=== PATIENT | female | born 1980 | race Two or more races ===

== ENCOUNTER 2024-05-04 07:25 | Emergency (ER) | payer MEDICAID, SELFPAY ==
[2024-05-04 07:25] VITALS: BMI 30.9
[2024-05-04 07:31] VITALS: BP 121/86; PULSE 131; RESP 18; TEMP 38.8; O2SAT 95; BMI 30.9
--- NOTE | 2024-05-04 07:45 | EDNOTE_ITS ---
Upper Respiratory Inf. RME/HPI General Chief Complaint: Flu Like Symptoms Stated Complaint: HAS THE FLU Time Seen by Provider: 05/04/24 07:43 Arrival date/time: 05/04/24 07:25 43-year-old female with multiple sick contacts at home which is a positive for the flu presents to the emergency department today for flulike symptoms for the last couple of days Limitations: no limitations Related Data Previous Rx's ?Medication ?Instructions ?Recorded pantoprazole 40 mg tablet,delayed 40 mg PO QDAY #30 ta bs 08/21/21 release phenazopyridine 100 mg tablet 100 mg PO TID PRN pain 6 doses #6 03/21/22 (Pyridium) tabs amoxicillin 875 mg-potassium 1 tab PO BID 7 days #14 t abs 05/04/24 clavulanate 125 mg tablet ibuprofen 800 mg tablet 800 mg PO TID PRN pain #30 t abs 05/04/24 Allergies Allergy/AdvReac Type Severity Reaction Status Date / Time No Known Allergies Allergy Verified 05/04/24 07:27 Review of Systems Review of Systems Systems Reviewed: All systems reviewed, normal except as documented Constitutional Constitutional: Reports system reviewed and no additional complaints, except as documented, Denies fever(s) and Reports headache(s) Eyes Eyes: Reports system reviewed and no additional complaints, except as documented and Denies blurry vision ENT Ears, Nose, Mouth, and Throat: Reports system reviewed and no additional complaints, except as documented, Reports headache(s), Reports nasal congestion, Reports nasal discharge, Reports sinus pain and Reports sinus pressure Cardiovascular Cardiovascular: Reports system reviewed and no additional complaints, except as documented, Denies chest pain and Denies dyspnea Respiratory Respiratory: Reports system reviewed and no additional complaints, except as documented, Denies chest congestion, Denies cough and Denies dyspnea Gastrointestinal Gastrointestinal: Reports system reviewed and no additional complaints, except as documented and Denies abdominal pain Integumentary/Breasts Skin/Breast: Reports system reviewed and no additional complaints, except as documented and Denies rash Neurologic Neurologic: Reports system reviewed and no additional complaints, except as documented, Reports as per HPI and Reports headache(s) Past Medical History Past Medical History CARDIAC: Negative Congestive Heart Failure RESPIRATORY: Negative Chronic Obstructive Pulmonary Disease (COPD) GENITOURINARY: Negative Renal Disease ENDOCRINE: Negative Diabetes Mellitus Type 1 or Diabetes Mellitus Type 2 Surgical History SURGICAL: Positive Tubal Ligation Social History SMOKING STATUS: Never smoker ED Exam General Limitations: Present no limitations General appearance: Present alert and in no apparent distress Head Head exam: Present atraumatic Eye Eye exam: Present normal appearance, PERRL and EOMI ENT ENT exam: Present normal exam, normal oropharynx and mucous membranes moist Neck Neck exam: Present normal inspection, full ROM and trachea midline Chest Chest inspection: Present normal inspection and symmetric chest wall rise Respiratory Respiratory exam: Present normal lung sounds bilaterally; Absent respiratory distress Cardiovascular Cardiovascular exam: Present regular rate, normal rhythm and normal heart sounds Abdominal Exam Abdominal exam: Present soft and normal bowel sounds; Absent distention, tenderness, guarding, rebound or rigidity Extremities Exam Extremities exam: Present normal inspection and full ROM Back Exam Back exam: Present normal inspection and full ROM Neurological Exam Neurological exam: Present alert, oriented X3 and CN II-XII intact Psychiatric Psychiatric exam: Present normal affect and normal mood Skin Skin exam: Present warm, dry, intact and normal color Course Quality Measures none Orders Category Date Time Status Bedside Influenza A&B Antigen Test NOW Care 05/04/24 07:37 Completed Acetaminophen Tab [Tylenol ES Tab] Med 05/04/24 07:36 Discontinued 1,000 mg PO X1 ONE Ondansetron Odt [Zofran Odt] Med 05/04/24 07:36 Discontinued 4 mg PO X1 ONE Vital Signs Vital signs: Vital Signs Temperature 101.8 F H 05/04/24 07:31 Pulse Rate 131 H 05/04/24 07:31 Respiratory Rate 18 05/04/24 07:31 Blood Pressure 121/86 H 05/04/24 07:31 Pulse Oximetry (%) 95 05/04/24 07:31 O2 saturation 95% room air within normal limits Upper Respiratory Infection MDM Narrative MDM Narrative:: 43-year-old female with multiple sick contacts at home which is a positive for the flu presents to the emergency department today for flulike symptoms for the last couple of days On exam patient well-appearing patient does not appear ill or toxic and in no acute distress despite having fever. I suspect patient has the flu she did test positive for the flu today Patient given medication for fever and vomiting Patient discharged home in no distress to follow-up with primary care doctor in the next 24 to 48 hours and for any worsening symptoms to return to the ER immediately Patient data External records reviewed:: [facility] previous records Clinical information provided by:: patient Social determinants that could affect healthcare access:: none Patient has the following chronic illnesses:: None How is presenting disease/condition affected by chronic disease/condition?: no chronic disease Evaluation data The following diagnostics were reviewed and interpreted by me:: lab results Lab and/or radiology exams considered but not ordered:: Lab obtained Interpretation Summary: Reviewed by me Medications / Prescriptions Medications or Prescriptions considered but not ordered:: Given Medication administrations:: Medication Administration History Discontinued Medications Acetaminophen (Acetaminophen 500 Mg Tablet) 1,000 mg PO X1 ONE Stop: 05/04/24 07:37 Last Admin: 05/04/24 08:25 Dose: 1,000 mg Documented By: CASANDRA Ondansetron HCl (Ondansetron Odt 4 Mg Tabrap) 4 mg PO X1 ONE; Protocol Stop: 05/04/24 07:37 Last Admin: 05/04/24 08:25 Dose: 4 mg Documented By: CASANDRA Given Consultations Consultation(s) initiated? (list below): No Diagnosis Upper Respiratory Differential Diagnosis: upper respiratory infection, sinusitis, viral infection, bronchitis and influenza Most likely diagnosis given after review of the tests above:: Influenza Admission Indicated Admission indicated?: not indicated Admission Request Was there a request for admission?: No Disposition Plan Disposition Plan: Discharge Discharge Attestation Discharge Attestation: The patient and all family members were given an opportunity to ask questions and understood the discharge instructions. Discharge instructions specifically effects, indications for sooner follow up or return to the emergency department, and the expected course of current diagnosis. Patient condition: Stable Discharge Plan Plan Patient Disposition: HOME (Self Care) Disposition Comment: stable Prescriptions/Referrals Prescriptions/Med Rec: New ibuprofen 800 mg tablet 800 mg PO TID PRN (Reason: pain) Qty: 30 0RF amoxicillin-pot clavulanate 875-125 mg tablet 1 tab PO BID 7 Days Qty: 14 0RF No Action pantoprazole 40 mg tablet,delayed release (DR/EC) 40 mg PO QDAY Qty: 30 0RF phenazopyridine [Pyridium] 100 mg tablet 100 mg PO TID PRN (Reason: pain) Qty: 6 0RF Referrals: Dae Medina MD [Primary Care Provider] - In 1 week Problem List Clinical Impression: Influenza, Sinusitis Patient/Caregiver Discharge Instructions Education Materials: ED Influenza (Adult) Additional Instructions: Please follow up with your primary care doctor in the next 24-48hrs for any worsening symptoms return here immediately Print Language: Tuvaluan Stand Alone Forms: Anette Award Info., Patient Portal Info Letter PA/WAREHOU[employer] Supervising Physician MICHELLE/JULIA Supervising Physician: Dr Fields
[2024-05-04] MEDS: ACETAMINOPHEN 500 MG TABLET 1000 MG PO (08:25)
[2024-05-04] MEDS: ONDANSETRON ODT 4 MG TABRAP PO (08:25)
[2024-05-04 09:39] VITALS: TEMP 37.9
== END 2024-05-04 09:39 | disposition home or self-care (01) ==
PROVIDERS: Emergency Provider Emergency Medicine; PCP Family Medicine
DX: J11.1 Influenza due to unidentified influenza virus with other respiratory manifestations (principal); J32.9 Chronic sinusitis, unspecified
CPT/HCPCS: 87400; 99283; Q0162; A9270